=== PATIENT | male | born 1975 | race Caucasian/White ===

== ENCOUNTER → 2021-06-21 | Outpatient (CLI) | payer OTHER ==
[2021-06-21 11:46] LABS: HEMOGLOBIN 15.9 gm/dl (14.0-17.5); RED BLOOD COUNT 5.45 M/UL (4.20-5.50); WHITE BLOOD COUNT 5.5 K/UL (4.5-11.0)
[2021-06-21 12:46] LABS: BUN/CREATININE RATIO 24 (0-10)
[2021-06-22 08:14] LABS: VITAMIN D, 25-HYDROXY 39.6 ng/mL (30.0-100.0)
== END ==
LOC: LAB 10:27
PROVIDERS: Nurse Practitioner
DX: E10.9 Type 1 diabetes mellitus without complications (principal); E78.5 Hyperlipidemia, unspecified; I10 Essential (primary) hypertension; Z12.5 Encounter for screening for malignant neoplasm of prostate; E55.9 Vitamin D deficiency, unspecified
CPT/HCPCS: 36415; 80053; 80061; 81001; 83036; 84153; 84436; 84443; 84480; 85025

== ENCOUNTER → 2021-09-19 | Outpatient (CLI) | payer OTHER ==
[2021-09-19 12:42] LABS: HEMOGLOBIN 14.7 gm/dl (14.0-17.5); RED BLOOD COUNT 5.05 M/UL (4.20-5.50); WHITE BLOOD COUNT 5.3 K/UL (4.5-11.0)
[2021-09-19 13:15] LABS: BUN/CREATININE RATIO 26 (0-10)
[2021-09-20 09:14] LABS: THYROXINE (T4) 7.9 ug/dL (4.5-12.0); VITAMIN D, 25-HYDROXY 38.6 ng/mL (30.0-100.0)
== END ==
LOC: LAB 12:20
PROVIDERS: Nurse Practitioner
DX: E10.9 Type 1 diabetes mellitus without complications (principal); E78.5 Hyperlipidemia, unspecified; Z12.5 Encounter for screening for malignant neoplasm of prostate; I10 Essential (primary) hypertension; E55.9 Vitamin D deficiency, unspecified
CPT/HCPCS: 36415; 80053; 80061; 81001; 83036; 84436; 84443; 84480; 85025